=== PATIENT | male | born 2000 | race Caucasian/White ===

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

== ENCOUNTER 2019-01-09 19:41 | Emergency (ER) | payer OTHER ==
[~2019-01-09] VITALS: Ht 177.8 cm; Wt 68.0 kg
[2019-01-09] MEDS ORDERED: LATUDA (19:58)
[2019-01-09] MEDS ORDERED: NICOTINE PATCH (19:58)
[2019-01-09] MEDS ORDERED: ADDERAL (19:58)
== END 2019-01-09 20:52 | disposition home or self-care (01) ==
LOC: ER 19:41
DX: S61.211A Laceration without foreign body of left index finger without damage to nail, initial encounter (principal); J45.909 Unspecified asthma, uncomplicated; F17.200 Nicotine dependence, unspecified, uncomplicated; Z91.018 Allergy to other foods; Z79.899 Other long term (current) drug therapy; Y29.XXXA Contact with blunt object, undetermined intent, initial encounter
CPT/HCPCS: 12001; 99282-25

== ENCOUNTER 2019-04-12 03:05 | Emergency (ER) | payer OTHER ==
[~2019-04-12] VITALS: Ht 180.3 cm; Wt 65.8 kg
[~2019-04-12 03:05] MED LIST changes: +ADDERAL; +LATUDA; +NICOTINE PATCH
[2019-04-12] MEDS ORDERED: LATUDA40 MG PO (03:23)
[2019-04-12] MEDS ORDERED: Adderall 5mg tab5 MG PO (03:24)
== END 2019-04-12 04:16 | disposition home or self-care (01) ==
LOC: ER 03:05
DX: S80.01XA Contusion of right knee, initial encounter (principal); S30.0XXA Contusion of lower back and pelvis, initial encounter; W10.9XXA Fall (on) (from) unspecified stairs and steps, initial encounter; J45.909 Unspecified asthma, uncomplicated; F17.200 Nicotine dependence, unspecified, uncomplicated; Z91.018 Allergy to other foods; Z79.899 Other long term (current) drug therapy
CPT/HCPCS: 71101; 99283-25